=== PATIENT | female | born 1960 | race Hispanic/Latino ===

== ENCOUNTER → 2025-02-06 | Emergency (ER) | payer SELFPAY ==
[~2025-02-06] VITALS: Ht 144.8 cm; Wt 52.2 kg
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
[2025-02-06] MEDS: acetaMINOPHEN 500 MG TABLET PO ONE (13:05)
[2025-02-06] MEDS: diazePAM 2 MG TAB PO ONE (13:05)
[2025-02-06 13:39] VITALS: BP 161/87; PULSE 75; RESP 18; TEMP 97.9; O2SAT 99
== END ==
LOC: EDH 12:32
DX: F41.9 Anxiety disorder, unspecified (principal); G44.209 Tension-type headache, unspecified, not intractable; F32.A Depression, unspecified; E11.9 Type 2 diabetes mellitus without complications
CPT/HCPCS: 99283